=== PATIENT | female | born 1955 | race Caucasian/White ===

== ENCOUNTER 2017-11-21 16:03 | Emergency (ER) | payer MEDICAID ==
[2017-11-21 16:30] VITALS: BMI 28.1
[2017-11-21 16:32] VITALS: BP 116/83; PULSE 79; RESP 18; TEMP 98.7; O2SAT 100
[2017-11-21] MEDS ORDERED: Naproxen 550 mg Tab PO STA (18:26)
--- NOTE | 2017-11-21 18:27 | C.PDOC ---
History Of Present Illness 62 year old female presents to the ER with a complaint of left sided back pain that began 4 days ago. Initially she reports she took motrin for the pain with relief, however, she reports she woke up today with the pain again which prompted visit. Patient reports the pain worsens with movement; she denies heavy lifting, direct trauma nausea, vomiting, fever, or dysuria. Denies urinary or bowel incontinence, change in sensation, or weakness. Time Seen by Provider: 11/21/17 18:08 Chief Complaint (Nursing): Back Pain History Per: Patient History/Exam Limitations: no limitations Onset/Duration Of Symptoms: Days Current Symptoms Are (Timing): Still Present Quality Of Discomfort: Unable To Describe Previous Symptoms: None Associated Symptoms: None Exacerbating Factor(s): Movement Recent travel outside of the [place]: No Past Medical History Reviewed: Historical Data, Nursing Documentation, Vital Signs Vital Signs: Last Vital Signs Temp 98.7 F 11/21/17 16:30 Pulse 79 11/21/17 16:30 Resp 18 11/21/17 16:30 BP 116/83 11/21/17 16:30 Pulse Ox 100 11/21/17 21:04 - Medical History PMH: HTN Family History: States: Unknown Family Hx - Social History Hx Alcohol Use: No Hx Substance Use: No - Immunization History Hx Tetanus Toxoid Vaccination: No Hx Influenza Vaccination: Yes (not up to date) Hx Pneumococcal Vaccination: No Review Of Systems Constitutional: Negative for: Fever, Chills Gastrointestinal: Negative for: Nausea, Vomiting, Abdominal Pain Genitourinary: Negative for: Dysuria Musculoskeletal: Positive for: Back Pain Neurological: Negative for: Weakness, Numbness Physical Exam - Physical Exam Appears: Non-toxic, No Acute Distress Skin: Normal Color, Warm, Dry Head: Atraumatic, Normacephalic Eye(s): bilateral: Normal Inspection, EOMI Nose: Normal Oral Mucosa: Moist Neck: Normal ROM, Supple Chest: Symmetrical Cardiovascular: Rhythm Regular Respiratory: Normal Breath Sounds Gastrointestinal/Abdominal: Soft, No Tenderness Back: No CVA Tenderness, No Vertebral Tenderness, Paraspinal Tenderness (Left lumbar) Extremity: Normal ROM (x4) Neurological/Psych: Oriented x3, Normal Speech, Normal Motor, Normal Sensation Gait: Steady (walking without evidence of distress) ED Course And Treatment O2 Sat by Pulse Oximetry: 100 (Room air) Pulse Ox Interpretation: Normal - Other Rad LS spine x-ray X-Ray: Interpreted by Me, Viewed By Me Interpretation: No acute fractures or dislocations. Progress Note: LS spine x-ray and UA ordered, results were negative. Naproxen administered for pain. Patient reports improvement of back pain, she is ambulatory in the ER with no pain or discomfort. Will discharge home with instructions to follow up with PMD or return if symptoms worsen. Disposition - Disposition Disposition: HOME/ ROUTINE Disposition Time: 19:20 Condition: STABLE Additional Instructions: Follow up with your primary medical doctor or clinic in 2-5 days for further evaluation. Take medications as prescribed. Return to the emergency department at any time if symptoms persist or worsen. 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 - Scribe Statement The provider has reviewed the documentation as recorded by the Scribhiren Magaña All medical record entries made by the Tomekaibhiren were at my direction and personally dictated by me. I have reviewed the chart and agree that the record accurately reflects my personal performance of the history, physical exam, medical decision making, and the department course for this patient. I have also personally directed, reviewed, and agree with the discharge instructions and disposition.
[2017-11-21] MEDS ORDERED: Naproxen 550 mg Tab PO ONE (18:32)
[2017-11-21 19:05] LABS: SQUAMOUS EPITHIAL 1 /hpf (0-5); URINE BILIRUBIN NEGATIVE (NEGATIVE); URINE BLOOD NEGATIVE (NEGATIVE); URINE CLARITY Clear (Clear); URINE COLOR Yellow (YELLOW); URINE GLUCOSE (UA) NORMAL (Normal); URINE LEUKOCYTE ESTERASE NEG Leu/uL (Negative); URINE NITRATE NEGATIVE (NEGATIVE); URINE PROTEIN NEGATIVE (NEGATIVE); URINE UROBILINOGEN NORMAL mg/dL (0.2-1.0)
--- NOTE | 2017-11-22 10:37 | RAD ---
PROCEDURE: Radiographs of the Lumbar Spine. HISTORY: pain COMPARISON: None available. FINDINGS: BONES: Mild curvature of the lumbar spine convex to the left. Alignment appears otherwise satisfactory. No listhesis. No acute displaced fracture identified. Multilevel degenerative changes. Facet hypertrophy. DISC SPACES: Vacuum disc phenomenon at L5-S1. OTHER FINDINGS: Moderate constipation. IMPRESSION: Degenerative changes. Mild scoliosis. Moderate constipation.
== END 2017-11-21 19:28 | disposition home or self-care (01) ==
LOC: C.ER 16:03
DX: M54.5 Low back pain (principal)